=== PATIENT | female | born 1995 | race Caucasian/White ===

== ENCOUNTER 2024-11-22 15:44 | Emergency (ER) | payer SELFPAY ==
[~2024-11-22] VITALS: Ht 157.4 cm; Wt 52.4 kg
[2024-11-22 16:50] LABS: BILIRUBIN Negative (Negative); BLOOD Negative (Negative); CLARITY Clear (Clear); COLOR Yellow (Yellow); GLUCOSE Negative (Negative); KETONE Trace (Negative); LEUKO ESTERASE Negative (Negative); NITRITE Negative (Negative)
[2024-11-22 17:20] LABS: RBC 0-2 rbc/hpf (0-2)
[2024-11-22 17:21] LABS: BACTERIA 1+; EPITHELIAL CELLS 31-40; WBC 0-2 wbc/hpf (0-5)
== END 2024-11-22 17:49 | disposition home or self-care (01) ==
LOC: ED 15:44
PROVIDERS: Physician Assistant Medical
DX: Z32.01 Encounter for pregnancy test, result positive (principal)

== ENCOUNTER 2025-03-07 12:14 | Emergency (ER) | payer OTHER, MEDICAID ==
[~2025-03-07] VITALS: Ht 157.4 cm
[2025-03-07] MEDS ORDERED: PRENATA CHEWAB1 EACH PO (12:23)
[2025-03-07] MEDS ORDERED: AMOX-CLAV 875-1 EACH PO (14:08)
== END 2025-03-07 14:15 | disposition home or self-care (01) ==
LOC: ED 12:14
DX: O99.513 Diseases of the respiratory system complicating pregnancy, third trimester (principal); J40 Bronchitis, not specified as acute or chronic; Z20.822 Contact with and (suspected) exposure to COVID-19; Z79.899 Other long term (current) drug therapy; Z3A.28 28 weeks gestation of pregnancy

== ENCOUNTER 2025-04-06 14:50 | Emergency (ER) | payer OTHER, MEDICAID ==
[~2025-04-06] VITALS: Ht 157.4 cm; Wt 67.2 kg
[~2025-04-06 14:50] MED LIST: AMOX-CLAV 875-1 EACH PO; PRENATA CHEWAB1 EACH PO
[2025-04-06 15:43] LABS: BASO # 0.0 10*3/uL (0.0-0.1); BASO % 0.1 % (0.0-1.0); EOS # 0.1 10*3/uL (0.0-0.4); EOS % 0.6 % (1.0-4.0); MEAN CELL VOLUME 89.1 fl (81.0-99.0); MEAN CORPUSCULAR HGB 29.7 pg (27.0-31.0); MEAN PLATELET VOLUME 11.4 fl (9.6-12.3); MONO # 0.6 10*3/uL (0.1-1.0); MONO % 6.4 % (3.0-9.0); NEUT # 6.1 10*3/uL (2.3-7.9); NEUT % 72.0 % (47.0-73.0); NUCLEATED RED BLOOD CELL 0.0 % (0.0-0.0); NUCLEATED RED BLOOD CELL 0.0 10*3/uL (0.0-0.0); PLATELET COUNT AUTOMATED 153 10*3/uL (130-400); RED CELL DISTRI WIDTH 12.2 % (0-14.5)
[2025-04-06 16:19] LABS: BUN 8 mg/dl (9-23); SGPT/ALT 13 U/L (5-49)
[2025-04-06 16:53] LABS: BILIRUBIN Negative (Negative); BLOOD 1+ (Negative); CLARITY Clear (Clear); COLOR Yellow (Yellow); KETONE Negative (Negative); LEUKO ESTERASE Negative (Negative); NITRITE Negative (Negative); PH 6.5 (4.5-8.0); SPECIFIC GRAVITY 1.010 (1.001-1.030); UROBILINOGEN 1.0 E.U./dl (0.0-1.0)
[2025-04-06 17:09] LABS: BACTERIA TRACE; EPITHELIAL CELLS 16-20
== END 2025-04-06 18:07 | disposition left against medical advice (07) ==
LOC: ED 14:50
PROVIDERS: Student in an Organized Health Care Education/Training Program
DX: O46.93 Antepartum hemorrhage, unspecified, third trimester (principal); Z3A.33 33 weeks gestation of pregnancy; Z79.899 Other long term (current) drug therapy